=== PATIENT | male | born 1955 | race African-American/Black ===

== ENCOUNTER 2020-11-30 13:39 | Outpatient (CLI) | payer OTHER | END 2020-11-30 13:40 | disposition home or self-care (01) | LOC: ULT 13:39 | DX: I70.202 Unspecified atherosclerosis of native arteries of extremities, left leg (principal) | CPT/HCPCS: 93923 ==

== ENCOUNTER 2021-04-16 13:19 | Outpatient (CLI) | payer OTHER | END 2021-04-16 13:20 | disposition home or self-care (01) | LOC: ULT 13:19 | DX: I73.9 Peripheral vascular disease, unspecified (principal) | CPT/HCPCS: 93923 ==

== ENCOUNTER 2022-03-08 13:02 | Outpatient (CLI) | payer OTHER | END 2022-03-08 13:03 | disposition home or self-care (01) | LOC: ULT 13:02 | DX: I72.4 Aneurysm of artery of lower extremity (principal) | CPT/HCPCS: 93923 ==

== ENCOUNTER 2024-01-17 07:36 | Outpatient (CLI) | payer OTHER | END 2024-01-17 07:37 | disposition home or self-care (01) | LOC: SCSMRI 07:36 | DX: M47.26 Other spondylosis with radiculopathy, lumbar region (principal); I71.40 Abdominal aortic aneurysm, without rupture, unspecified; N13.4 Hydroureter; N13.30 Unspecified hydronephrosis | CPT/HCPCS: 72148 ==